=== PATIENT | male | born 1985 | race Caucasian/White ===

== ENCOUNTER 2019-08-24 16:29 | Emergency (ER) | payer OTHER ==
[~2019-08-24] VITALS: Ht 185.4 cm; Wt 73.5 kg
== END 2019-08-24 17:44 | disposition home or self-care (01) ==
LOC: ED 16:29
DX: K64.8 Other hemorrhoids (principal); K64.4 Residual hemorrhoidal skin tags
CPT/HCPCS: 85025; 99283

== ENCOUNTER 2020-02-29 17:56 | Emergency (ER) | payer MEDICARE, OTHER ==
[~2020-02-29] VITALS: Ht 185.4 cm; Wt 84.8 kg
--- OUTSIDE RECORDS SUMMARY | 2020-02-29 17:58 | XMS ---
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 Guicho has no Care Guidelines for this patient. E.DRosita VISIT COUNT (12 MO.) [address] - [place] 2 GABRIELA Man TOTAL 5 NOTE: Visits indicate total known visits. ED/C VISIT TRACKING (12 MO.) 02/29/2020 17:56 GABRIELA [facility] [place] TYPE: Emergency COMPLAINT: - FLANK PAIN 02/28/2020 20:50 Alex [facility] [place] TYPE: Emergency DIAGNOSES: - ABD PAIN/NAUSEA - Calculus of ureter 02/28/2020 14:59 Alex Fountain [place] TYPE: Emergency DIAGNOSES: - Epigastric pain - abd pain 02/25/2020 15:37 [facility] Humberto Johnson TYPE: Emergency COMPLAINT: - ULCERS ARM STIFFNESS 08/24/2019 16:29 GABRIELA Hughes [place] TYPE: Emergency COMPLAINT: - ABD PAIN DIAGNOSES: - Other hemorrhoids - Residual hemorrhoidal skin tags - Melena INPATIENT VISIT TRACKING (12 MO.) No inpatient visits to display in this time frame [id number]
[2020-02-29] MEDS ORDERED: FLOMAX0.4 MG PO (18:07)
[2020-02-29] MEDS ORDERED: ONDANSETRON ODT4 MG PO (18:07)
[2020-02-29] MEDS ORDERED: FAMOTIDINE40 MG PO (18:07)
[2020-02-29] MEDS ORDERED: PERCOCET 5-3251 EACH PO (18:08)
== END 2020-02-29 19:38 | disposition home or self-care (01) ==
LOC: ED 17:56
DX: N20.1 Calculus of ureter (principal)
CPT/HCPCS: 96374; 96375; 99283-25; J1885; J2405; J7030

== ENCOUNTER 2020-03-01 14:23 | Observation (INO) | payer MEDICARE, OTHER ==
[~2020-03-01] VITALS: Ht 185.4 cm; Wt 85.0 kg
--- NOTE | ~2020-03-01 | OR ---
[facility] [address] [facility] [place], [place] [address] Draft DATE OF OPERATION: 03/03/2020 SURGEON: Chantale Arevalo MD PREOPERATIVE DIAGNOSIS: A 6 mm left ureterovesical junction calculus. POSTOPERATIVE DIAGNOSIS: A 6 mm left ureterovesical junction calculus. NAMES OF PROCEDURES: 1. Diagnostic cystoscopy with left retrograde pyelogram. 2. Left semi-rigid ureteroscopy with laser lithotripsy and extraction of ureteral calculus. ANESTHESIA: General. ESTIMATED BLOOD LOSS: None. COMPLICATIONS: None. SPECIMENS: Fragments of distal ureteral calculus sent to the lab for stone analysis. DRAINS: None. INDICATION FOR PROCEDURE: Mr. Baker is a very pleasant 34-year-old male with no previous history of nephrolithiasis, who presented to the Emergency Department for the 3rd time on March 01 with persistent nausea, vomiting, and anorexia secondary to a 6 mm left ureterovesical junction calculus. He is admitted and placed on IV fluid resuscitation and pain control. Throughout the next day, he attempted a trial of passage of the stone; however, this was unsuccessful. He initially underwent a KUB which revealed no evidence of the stone; however, an ultrasound was able to confirm the presence of his distal left ureteral calculus. After discussion of the risks and benefits of procedure, the patient has agreed to undergo elective extraction of his obstructing left ureteral PATIENT NAME: KARIE BAKER OPERATIVE REPORT DATE OF : 87 REPORT #: [id number] PHYSICIAN: CHANTALE AREVALO MD PCP: NO PRIMARY CARE PHYSICIAN REPORT IS CONFIDENTIAL AND NOT TO BE RELEASED WITHOUT AUTHORIZATION [facility] [address] [place], [place] [address] Draft calculus. OPERATIVE FINDINGS: On cystoscopy, there was no evidence of any suspicious masses, lesions, or stones. Bilateral ureteral orifices are in their normal anatomic location. The left ureteral orifice is effluxing a very small amount of urine on that side. Also of note, the left ureteral orifice appears very inflamed and is mildly erythematous. Left retrograde pyelogram was performed which revealed no obvious filling defect within the left ureter. The ureter overall was of relatively normal caliber. Diagnostic ureteroscopy revealed the presence of a 6 mm stone in the distal left ureter, around 1.5 cm from the ureteral orifice. This stone was fragmented using a holmium laser at 8 and 0.8 settings. The stones fragmented easily and the fragments essentially fell out of the ureter and into the bladder. There was no need for placement of a ureteral stent. DESCRIPTION OF PROCEDURE: After informed consent was obtained, the patient was taken back to the operating room. [facility] room table, where general anesthesia was induced. He was placed in the dorsal lithotomy position and his genitalia prepped and draped in a standard sterile fashion. Using a 30-degree lens on a 22.5-Croatian introducer, rigid cystoscope was inserted through his urethra and into his bladder under direct visualization. Panendoscopic views of bladder were then obtained. Please see above findings. Attention was turned to the left ureteral orifice. A cone-tipped catheter was advanced into the distal left ureter and a left retrograde pyelogram was performed. Please see above findings. I removed the cone-tipped catheter and the cystoscope and inserted a semi-rigid ureteroscope. I made my way into the distal left ureter and was able to immediately locate the obstructing stone. The stone was fragmented using holmium laser at 8 and 0.8 settings. The stone fragmented quite easily. The stone was fragmented to small enough pieces that pieces essentially fell out of the ureter without any need for basket extraction. I repeated diagnostic ureteroscopy to confirm there were no other stone fragments within the left ureter. Once this was performed, I removed the ureteroscope and then reinserted the cystoscope at which point in time, I was able to irrigate the small stone fragments from the patient's bladder using the cystoscope. The stone fragments were placed in a specimen cup to be sent to the lab for stone analysis. The patient's bladder was then completely drained and the cystoscope was removed. The procedure was then terminated. The patient tolerated the procedure well without any complication. He will now be transferred to the postanesthesia care unit in stable condition. PATIENT NAME: KARIE BAKER OPERATIVE REPORT DATE OF : 87 REPORT #: [id number] PHYSICIAN: CHANTALE AREVALO MD PCP: NO PRIMARY CARE PHYSICIAN REPORT IS CONFIDENTIAL AND NOT TO BE RELEASED WITHOUT AUTHORIZATION [address] [id number] [place], [place] [address] Draft DISPOSITION: I discussed the details of today's procedure with the patient, answered of all his questions. I told him that his stone has been completely extracted and he has no additional stenting performed. He will be sent back to the floor where he will recover from anesthesia before being discharged to home later today in stable condition. He will be sent home with Cipro 500 mg p.o. b.i.d. for a total of 7 days, along with oxycodone 5 mg q.6 hours p.r.n. pain, dispense #20, and ketorolac 10 mg one tab p.o. q. 12 hours p.r.n. pain, dispense #10. He has been scheduled to return to clinic in early April for postoperative evaluation and to discuss his stone analysis results. MD ERNIE Driver/FLORENTINO /[id number] Copies: ~ PATIENT NAME: KARIE BAKER OPERATIVE REPORT DATE OF : 87 REPORT #: [id number] PHYSICIAN: CHANTALE AREVALO MD PCP: NO PRIMARY CARE PHYSICIAN REPORT IS CONFIDENTIAL AND NOT TO BE RELEASED WITHOUT AUTHORIZATION
[~2020-03-01 14:23] MED LIST: FAMOTIDINE40 MG PO; FLOMAX0.4 MG PO; ONDANSETRON ODT4 MG PO; PERCOCET 5-3251 EACH PO
--- OUTSIDE RECORDS SUMMARY | 2020-03-01 14:26 | XMS ---
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 - 3 Facilities in 90 Days - [facility] 2 Visits in 30 Days CARE PROVIDERS There are no care providers on record at this time. Guicho has no Care Guidelines for this patient. E.DRosita VISIT COUNT (12 MO.) [address] - [place] 3 GABRIELA Man TOTAL 6 NOTE: Visits indicate total known visits. ED/C VISIT TRACKING (12 MO.) 03/01/2020 14:23 GABRIELA [facility] [place] TYPE: Emergency COMPLAINT: - ABD PAIN, NAUSEA [facility] COMPLAINT: - FLANK PAIN 02/28/2020 20:50 Alex Fountain [place] TYPE: Emergency DIAGNOSES: - ABD PAIN/NAUSEA - Calculus of ureter 02/28/2020 14:59 Alex Fountain [place] TYPE: Emergency DIAGNOSES: - Epigastric pain - abd pain 02/25/2020 15:37 [facility] Lj Johnson TYPE: Emergency COMPLAINT: - ULCERS ARM STIFFNESS 08/24/2019 16:29 GABRIELA Hughes [place] TYPE: Emergency COMPLAINT: - ABD PAIN DIAGNOSES: - Other hemorrhoids - Residual hemorrhoidal skin tags - Melena INPATIENT VISIT TRACKING (12 MO.) No inpatient visits to display in this time frame [id number]
--- NOTE | 2020-03-01 17:39 | NUR ---
report from Becky smith in er
--- NOTE | 2020-03-01 17:55 | NUR ---
pt to rm 114 via er som amb. to bed. this rn oriented to room and call light. we discussed transition of care and plan of day - with dr kate to resume care and educated pt on npo status, iv hydration, pain and nausea meds until further orders.
--- NOTE | 2020-03-01 20:12 | NUR ---
pt awake, alert and oriented, on room air, up to br, voided, dark yellow urine. no c/o burning or painful urination at this time. Aware of need to use urinal as we need to strain urine, reasson explained why, stated understanding, no c/o pain or n/v. did own mouth care. IVF infusing, NPO. coop with assessment
--- NOTE | 2020-03-01 22:00 | NUR ---
USED URINAL, STRAINED, NO RESIDUAL NOTED. IVF INFUSING, NO C/O N/V OR ABD PAIN AT THIS TIME, TURNS SELF IN BED, NPO, DOES OWN CARE
--- NOTE | 2020-03-02 01:39 | NUR ---
awakens easily, no c/o abd pain or n/v, ivf infusing, voiding qs yellow urine. goes back to sleep, wearing ear plugs and eye mask. Turns self
--- NOTE | 2020-03-02 04:43 | NUR ---
PT HAS SLEPT WELL, NO C/O ABD PAIN OR N/V. ON ROOM AIR, IVF INFUSING, NPO FOR POSSIBLE AM PROCEDURE. USES URINAL AND HAS VOIDED QS YELLOW URINE. URINE IS BEING STRAINED, NO STONES NOTED.
--- NOTE | 2020-03-02 06:50 | NUR ---
DR AREVALO HERE TO EXAMINE PT. NEW ORDERS TO CONTINUES NS AT 150CC/HR PER BRIDGE ORDER RECEIVE, KUB STAT, AND OK TO STRAIN URINE.
--- NOTE | 2020-03-02 08:05 | NUR ---
REPORT RECEIVED. PT IN BED AWAKE. DOWN TO IMAGING FOR KUB. FLUIDS CHANGED TO LR AT 150ML/HR PER DR VERBAL ORDER. PT IS DENYING PAIN. REPORTS SOME NAUSEA. MEDICATIONS ADMISNTERED. REGLAN TO BE GIVEN FOR NAUSEA. FLOMAX GIVEN WITH SIP OF WATER. CALL LIGHT IN REACH.
--- NOTE | 2020-03-02 09:23 | NUR ---
PATIENT IN BED RESTING WITH EYES CLOSED. WASH CLOTH GIVEN THIS MORNING. CALL LIGHT IN REACH. NO FURTHER NEEDS AT THIS TIME.
--- NOTE | 2020-03-02 10:00 | NUR ---
ASSESSMENT COMPLETED. PT REPORTS SLIGHT PAIN IN LLW. NO NEED FOR PAIN MEDICATIONS. SOME NAUSEA STILL AFTER REGLAN. LUNGS CLEAR. VOIDING WELL. STRAINING URINE. CALL LIGHT IN REACH.
--- NOTE | 2020-03-02 10:35 | NUR ---
PLAN FOR ABDOMINAL ULTRASOUND. PT JUST EMPTIED BLADDER. TOLD PT TO HOLD URINE HE SHOULD HAVE FULL BLADDER FOR PROCEDURE. PT AGREEABLE. WILL CALL WITH URGE TO VOID. DENEIS PAIN.
--- NOTE | 2020-03-02 11:07 | NUR ---
IMAGING IN FOR ULTRASOUND.
--- NOTE | 2020-03-02 11:25 | NUR ---
MED REC COMPLETE
--- NOTE | 2020-03-02 11:46 | NUR ---
PT DENEIS PAIN. SOME NAUEA HE STATES FROM NOT EATING. WILL CONT TO MONITOR.
--- NOTE | 2020-03-02 12:02 | NUR ---
In visiting with patient, patient states that he has no PCP, but desires to have a PCP. [facility] contacted per this RN, pt is actually registered in their systme. PCP appointment scheduled with Dr. Jeanne James for March 09, 2020 @ 2:40 p.m., check-in at 2:20 to do paperwork. Pt instructed of early check-in and reminded to take insurance cards. Pt given card for scheduled appointment, and copy of appointment to patient chart.
--- NOTE | 2020-03-02 12:33 | NUR ---
Records faxed to [facility], and confirmation of records rc'd obtained.
--- NOTE | 2020-03-02 13:00 | NUR ---
DR AREVALO CALLED TO FLOOR WITH ORDERS TO CHANGE PT STATUS TO REGULAR DIET. PLAN FOR SURGERY IN MORNING. NPO AT MIDNIGHT.
--- NOTE | 2020-03-02 13:09 | NUR ---
PT ALERT, ORIENTED AND RESTING IN BED WATCHING TV. PT STATES HE FEELS LIKE HE IS IMPROVING. PT ALSO MENTIONED HE IS UNEMPLOYED AND MAY MOVE TO [place] SOON. LEFT A G.POST WITH PT. HE REQUESTED PRAYER AND A VISIT FROM . WILL NOTIFY FR GANDHI.
--- NOTE | 2020-03-02 13:42 | NUR ---
PATIENT IND IN ROOM. PATIENT SITTING UP IN BED SLOWLY WORKING ON LUNCH, CALL LIGHT IN REACH. NO FURTHER NEEDS AT THIS TIME.
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
--- NOTE | 2020-03-02 17:43 | NUR ---
PT AGREES TO STAY. DR AREVALO NOTIFIED. PT OUT AMBULATING HALLS NOW. DENEIS PAIN OR NASUEA.
--- NOTE | 2020-03-02 18:56 | NUR ---
PATIENT IN BED RESTING. CALL LIGHT IN REACH. NO FURTHER NEEDS AT THIS TIME.
--- NOTE | 2020-03-02 19:05 | NUR ---
BEDSIDE REPORT RECEIVED FROM NEHEMIAS RUTHERFORD. NEW BAG IVF INFUSING WNL. pt DENIES ANY PAIN AT THIS TIME. CALL LIGHT IS IN REACH.
--- NOTE | 2020-03-02 20:06 | NUR ---
pt ASSESSMENT COMPLETE. VSS. pt DENIES PAIN, DENIES NAUSEA. URINE STRAINED, NO STONES NOTED. PUDDING AND ICE WATER PROVIDED AND IN REACH. NO REQUESTS AT THIS TIME.
--- NOTE | 2020-03-03 00:23 | NUR ---
IV PUMP ALARMING, DISTAL OCCLUSION. NOW INFUSING WNL ORDERED. pt SLEEPING. PO FLUIDS CLEARED FROM TRAY TABLE, NPO FOR SURGERY.
--- NOTE | 2020-03-03 02:21 | NUR ---
IV PUMP ALARMING, NEW BAG IVF INFUSING WNL. pt AWAKENS TO RN IN ROOM. NO REQUESTS AT THIS TIME. CLOSES EYES RN WALKS OUT OF ROOM.
--- NOTE | 2020-03-03 06:01 | NUR ---
pt AWAKENS TO RNS ENTERING ROOM. ASSESSMENT COMPLETE. pt DENIES PAIN, DENIES NAUSEA. IV SL. pt UP IN SHOWER FOR PRE SURGICAL SHOWER WITH HIBICLENS. LINENS CHANGED. pt VERBALIZES UNDERSTANDING TO USE CALL LIGHT WHEN FINISHED WITH SHOWER.
--- NOTE | 2020-03-03 06:14 | NUR ---
CALL LIGHT ANSWERED. IV FLUSHED WNL, GOOD BLOOD RETURN. IVF INFUSING WNL ORDERED. CALL LIGHT IN REACH.
--- NOTE | 2020-03-03 06:17 | NUR ---
pt NPO AT MIDNIGHT. NO C/O NAUSEA OR PAIN THIS SHIFT. RESTED WELL THIS SHIFT. IVF INFUSING WNL ORDERED THROUGHOUT SHIFT. OFF FLOOR TO SURGERY AT 0621.
--- NOTE | 2020-03-03 06:22 | NUR ---
pt OFF MEDICAL FLOOR AT 0621 WITH SURGERY NEHEMIAS GORE. NEHEMIAS GORE NOTIFIED THAT pt WOULD LIKE TO SEE MD PRIOR TO SURGERY FOR A FEW MORE QUESTIONS, RN VERBALIZES THAT MD WILL ROUND.
--- NOTE | 2020-03-03 07:46 | NUR ---
REPORT RECIEVED. PT OFF FLOOR IN SURGERY.
--- NOTE | 2020-03-03 08:31 | NUR ---
03/03/20 0831 Krissy,Faviola 0830 PT ARRIVED TO PACU ON 6L VIA MASK AND ORAL AIRWAY IN PLACE. RESP EVEN AND UNLBAORED. VSS. 0826 PT WOKE AND ORAL AIRWAY REMOVED. PT SITTING UP IN BED AND GRABBED AT O2 MASK. PT DENIES PAIN AND NAUSEA. PT REORIENTED TO PACU, PT ROLLED TO RIGHT SIDE.
--- NOTE | 2020-03-03 09:00 | NUR ---
PT ARRIVED TO FLOOR VIA BED. PT DENEIS PAIN OR NAUSEA. VITALS TAKEN AND STABLE. BREAKFAAST ORDERED. TRAIL WITH SIPS OF WATER AND JELLO DONE. PT TOLERATED WELL. LR AT 150 INFUSING PER ORDER. CALL LIGHT IN REACH.
[2020-03-03] MEDS ORDERED: KETOROLAC TROME10 MG PO (09:12)
[2020-03-03] MEDS ORDERED: CIPRO500 MG PO (09:12)
[2020-03-03] MEDS ORDERED: OXYCODONE HCL5 MG PO (09:13)
--- NOTE | 2020-03-03 10:45 | NUR ---
Spoke with Rich. He is getting ready to dc to home. Denies needs. He has an appt with Dr. James. He is awaiting pharmacy med review. States his roommates will assist him, he is feeling much better and denies needs.
--- NOTE | 2020-03-03 11:02 | NUR ---
PT ALERT, ORIENTED AND DRESSED SITTING ON SIDE OF BED. PT IS READY FOR DC, FEELS WELL AND THANKED ME FOR CHECKING. GAVE BLESSING, WILL FOLLOW
--- NOTE | 2020-03-03 11:08 | NUR ---
DISCHARGE INSTRUCTIONS PROVIDED. PT WITH NO QUESTIONS.
== END 2020-03-03 11:19 | disposition home or self-care (01) ==
LOC: ED 14:23 → MS 14:24
PROVIDERS: ADMIT Urology; ATTEND Urology
PROC: 0TC78ZZ Extirpation of Matter from Left Ureter, Via Natural or Artificial Opening Endoscopic (ICD-10-PCS; principal; 2020-03-03 07:00)
DX: N20.1 Calculus of ureter (principal); K21.9 Gastro-esophageal reflux disease without esophagitis; F17.290 Nicotine dependence, other tobacco product, uncomplicated; R63.0 Anorexia; Z68.24 Body mass index [BMI] 24.0-24.9, adult; Z20.822 Contact with and (suspected) exposure to COVID-19
CPT/HCPCS: 00910; 74018; 74420; 76770; 80053; 81001; 82365; 83690; 85025; 86038; 96374; 96375; 99285-25; C1769; C9803; J0690; J1100; J1170; J1885; J2001; J2405; J2704; J2765; J3010; J7030; J7121; Q9967; U0003